=== PATIENT | female | born 1965 | race Caucasian/White ===

== ENCOUNTER 2016-11-02 14:03 | Emergency (ER) | payer SELFPAY ==
[~2016-11-02] VITALS: Wt 71.0 kg
[2016-11-02] MEDS ORDERED: CYCL-319 PO (14:49)
[2016-11-02] MEDS ORDERED: HYDR-906 PO (14:49)
[2016-11-02] MEDS ORDERED: ACET500C5 PO (14:50)
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
[2016-11-02] MEDS ORDERED: HYDROCODONE/APAP (5/325) TAB PO ONE (15:00)
== END 2016-11-02 15:08 | disposition home or self-care (01) ==
LOC: FTE 14:03
DX: S39.92XA Unspecified injury of lower back, initial encounter (principal); S19.9XXA Unspecified injury of neck, initial encounter; S09.90XA Unspecified injury of head, initial encounter; V49.49XA Driver injured in collision with other motor vehicles in traffic accident, initial encounter
CPT/HCPCS: 99284